=== PATIENT | male | born 1940 | race Caucasian/White ===

== ENCOUNTER 2019-08-03 06:46 | Day surgery (SDC) ==
--- NOTE | 2019-07-29 10:14 | EKG Report ---
Test Performed on : 07/29/2019 09:54:45 AM Test Reason : pat Blood Pressure : / mmHG Vent. Rate : 062 BPM Atrial Rate : 062 BPM P-R Int : 216 ms QRS Dur : 090 ms QT Int : 412 ms P-R-T Axes : 052 043 057 degrees QTc Int : 418 ms Sinus rhythm. with 1st degree AV block. Septal infarct , age undetermined Abnormal ECG No previous ECGs available Confirmed by Peg DYE, Bob Campos ([id number]) on 07/30/2019 7:42:48 PM
[2019-07-29 11:03] LABS: AGAP 10; BUN 16 mg/dL (8-22); CALCIUM 9.7 mg/dL (8.8-10.2); CHLORIDE 106 mmol/L (98-107); COSMO 284; CREATININE 0.8 mg/dL (0.7-1.2); ESTIMATED GFR > 60; GLUCOSE 85 mg/dL (70-104); POTASSIUM 4.3 mmol/L (3.5-5.1); SODIUM 142 mmol/L (136-145); TCO2 26 mmol/L (25-35)
[2019-07-29 11:05] LABS: HEMATOCRIT 35.5 % (42.0-52.0); HEMOGLOBIN 11.4 g/dL (14.0-18.0); MCH 33.4 PG (27-31); MCHC 32.1 g/dL (33-37); MCV 104.1 FL (81-99); MPV 9.9 FL (7.4-10.4); RBC 3.41 XMIL (4.7-6.1); RDW 13.6 % (11.5-14.5); WBC 1.4 X1000 (4.8-10.8)
[2019-08-03] MEDS ORDERED: LR 1,000 ML ONE ×2 (07:10→12:40)
[2019-08-03] MEDS ORDERED: KEFZOL 1 GM/D5W 2 GM/100 ML IVPB ONE (07:10)
[2019-08-03] MEDS ORDERED: QUELICIN (DOSE) ONE (07:34)
[2019-08-03] MEDS ORDERED: DIPRIVAN 1% ONE (07:34)
[2019-08-03] MEDS ORDERED: FENTANYL ONE (07:35)
[2019-08-03] MEDS ORDERED: ZOFRAN ONE (09:48)
[2019-08-03] MEDS ORDERED: DECADRON ONE (09:48)
[2019-08-03] MEDS ORDERED: ROBINUL ONE (09:48)
[2019-08-03] MEDS ORDERED: STERILE WATER INJ. ONE (09:48)
[2019-08-03] MEDS ORDERED: XYLOCAINE-MPF 2% ONE (09:48)
[2019-08-03] MEDS ORDERED: NORCURON ONE (09:48)
[2019-08-03] MEDS ORDERED: NEO-SYNEPHRINE ONE (09:48)
[2019-08-03] MEDS ORDERED: NEOSTIGMINE ONE (09:49)
[2019-08-03] MEDS ORDERED: PITRESSIN ONE ×2 (09:54→11:26)
[2019-08-03] MEDS ORDERED: B & O 16A SUPP ONE (12:02)
--- NOTE | 2019-08-03 12:28 | OPERATIVE NOTE ---
PROCEDURE DATE: 08/03/2019 SURGEON: Giovanni Gupta MD PREOPERATIVE DIAGNOSIS: Large bladder stone with obstructive and irritative voiding symptoms. POSTOPERATIVE DIAGNOSIS: Large bladder stone with obstructive and irritative voiding symptoms. PROCEDURE PERFORMED: 1. Cystolitholapaxy using the laser. 2. Transurethral resection of the prostate. ANESTHESIA: General endotracheal. FINDINGS: Cystoscopic exam: Urethra-greater than 25-Singaporean without stricture. Prostate - coapting lateral lobes, elevated bladder neck with length approximately 4 cm. Bladder-A large stone greater than 3.5 cm in length and 3 cm in width. It was very hard. The bladder had grade 3 trabeculations and small diverticula. No papillary lesions were noted. INDICATIONS FOR PROCEDURE: This 79-year-old male has a history of intermittent hematuria and severe obstructive and irritative voiding symptoms. Evaluation revealed a very large bladder stone, and an enlarged prostate. DESCRIPTION OF PROCEDURE: After informed consent was obtained from the patient, and him receiving IV antibiotics, he was taken to the main OR cystoscopy room, and placed in supine position. General endotracheal anesthesia was achieved. He was then placed in the low lithotomy position, and prepped and draped in the usual sterile fashion for cystoscopic exam. A 23-Singaporean sheath cystoscope was passed through the patient's urethra, prostate, and bladder with findings noted above. The 1000 micron laser fiber was placed. The laser was set at 8 hertz and 8 monroe, and the stone was well fragmented. A total of 22,015 joules was used to fragment the stone. The stone fragments were irrigated from the bladder. At completion, both ureteral orifices were intact. The bladder was left distended. The cystoscope was removed. A 25-Singaporean continuous flow resectoscope sheath was placed. The thick gyrus loop electrode was placed. Both ureteral orifices were visualized. The verumontanum was visualized. The resection was started at the 06:00 position, going to the level of bladder neck, level of the verumontanum, proceeding in a clockwise direction to the 10:00 position. The resection was then started back at the 6:00 position, going to the level of bladder neck, level of the verumontanum, proceeding in a counterclockwise direction to the 2:00 position. Tissue from the anterior prostatic urethra was removed between the 2:00 and 10:00 position from the level of bladder neck, level of the verumontanum. Hemostasis was achieved with the electrocautery. The chips were removed from the bladder with the [employer] evacuators. At completion, the channel was wide open. No chips were in the bladder. No bleeding areas were seen. Both ureteral orifices and verumontanum were intact. The bladder was left distended. The resectoscope sheath was removed, and a 22-Singaporean [address] Rothman catheter was passed per the patient's urethra, prostate, and bladder without difficulty. 30 mL of sterile water were placed in the Rothman's balloon. Rothman was placed to gravity drain. The efflux was light pink. Continuous bladder irrigation was started, and the efflux cleared. He tolerated the procedure well. Estimated blood loss 50 mL. He was taken to the recovery room in good condition. cc: Giovanni Gupta MD
[2019-08-03] MEDS ORDERED: LABETALOL IV PRN (13:30)
[2019-08-03] MEDS ORDERED: B & O 15A SUPP PR PRN (13:30)
[2019-08-03] MEDS ORDERED: PHENERGAN IV PRN (13:30)
[2019-08-03] MEDS ORDERED: DITROPAN PO PRN (13:30)
[2019-08-03] MEDS ORDERED: SODIUM CHLORIDE 0.9% INJ PRN (13:30)
[2019-08-03] MEDS ORDERED: NORCO-10 PO PRN (13:30)
[2019-08-03] MEDS ORDERED: NORCO-7.5 PO PRN (13:30)
[2019-08-03] MEDS ORDERED: NORCO-5 PO PRN (13:30)
[2019-08-03] MEDS: KEFZOL 1 GM/D5W 1 GM/50 ML IVPB IV SCH (17:50)
[2019-08-03] MEDS: LR 1,000 ML IV SCH (17:51)
[2019-08-03] MEDS: PEPCID PO SCH (20:14)
[2019-08-03] MEDS: COLACE PO SCH (20:14)
[2019-08-03] MEDS: PERIDEX MT SCH (20:14)
[2019-08-03] MEDS: VFEND PO SCH (20:15)
[2019-08-03] MEDS ORDERED: FLOMAX PO SCH (21:00)
[2019-08-04] MEDS: KEFZOL 1 GM/D5W 1 GM/50 ML IVPB IV SCH (01:05)
[2019-08-04] MEDS: LR 1,000 ML IV SCH (01:05)
[2019-08-04 07:00] LABS: HEMATOCRIT 31.5 % (42.0-52.0); MCH 33.3 PG (27-31); MCHC 31.7 g/dL (33-37); MPV 9.8 FL (7.4-10.4); RDW 13.7 % (11.5-14.5); WBC 2.49 X1000 (4.8-10.8)
[2019-08-04 07:50] LABS: AGAP 8; BUN 10 mg/dL (8-22); CALCIUM 8.3 mg/dL (8.8-10.2); CHLORIDE 107 mmol/L (98-107); COSMO 280; CREATININE 0.8 mg/dL (0.7-1.2); ESTIMATED GFR > 60; GLUCOSE 122 mg/dL (70-104); POTASSIUM 4.4 mmol/L (3.5-5.1); SODIUM 140 mmol/L (136-145); TCO2 25 mmol/L (25-35)
[2019-08-04 07:53] VITALS: BP 117/70
[2019-08-04] MEDS: VFEND PO SCH (08:13)
[2019-08-04] MEDS: COLACE PO SCH (08:13)
[2019-08-04] MEDS: PERIDEX MT SCH (08:14)
[2019-08-04] MEDS: PEPCID PO SCH (08:14)
[2019-08-04] MEDS ORDERED: VICON-C PO SCH (09:00)
[2019-08-04] MEDS ORDERED: VITAMIN B-12 PO SCH (09:00)
[2019-08-04] MEDS ORDERED: PRINIVIL PO SCH (09:00)
[2019-08-04] MEDS ORDERED: CENTRUM SILVER PO SCH (09:00)
[2019-08-04] MEDS ORDERED: LIPITOR PO SCH (09:00)
== END 2019-08-04 12:56 | disposition home or self-care (01) ==
LOC: PAT 06:46 → 4N 06:46 → PAT 08-04 12:56
PROVIDERS: ATTEND Urology
PROC: UR.TURP (2019-08-03 09:23)

== ENCOUNTER 2020-01-02 12:42 | Inpatient (IN) ==
--- NOTE | 2020-01-02 14:26 | Diag Imaging Result Doc PS360 ---
EXAM: CHEST-2 VIEWS INDICATION: pna TECHNIQUE: 2 views COMPARISON: 11/24/2018 FINDINGS: A left chest port is in place with the tip projecting over the lower SVC in the expected position. There is dense airspace consolidation in the right lower lobe indicating pneumonia. The left lung is clear. There is no discrete pleural fluid collection or pneumothorax. The cardiomediastinal silhouette and central vasculature are grossly unremarkable. IMPRESSION: Right lower lobe pneumonia. Electronically signed by Tommie Allen 01/02/2020 2:24 PM
[2020-01-02 15:06] LABS: BASO# 0.01 X1000 (0.0-0.2); BASO% 0.4 % (0.0-0.8); EOS# 0.02 X1000 (0.0-0.7); EOS% 0.8 % (0.0-10.0); HEMATOCRIT 33.9 % (42.0-52.0); HEMOGLOBIN 11.3 g/dL (14.0-18.0); LYMPH# 0.66 X1000 (1.2-3.4); MCH 32.4 PG (27-31); MCHC 33.3 g/dL (33-37); MCV 97.1 FL (81-99); MONO# 0.12 X1000 (0.11-0.59); MONO% 4.7 % (1.7-9.3); MPV 9.2 FL (7.4-10.4); NEUT# 1.73 X1000 (1.4-6.5); NEUT% 68.1 % (42.2-75.2); PLT 268 X1000 (130-400); RBC 3.49 XMIL (4.7-6.1); RDW 13.3 % (11.5-14.5); WBC 2.54 X1000 (4.8-10.8)
[2020-01-02 15:18] LABS: INR 1.32; PROTIME 16.6 Seconds (11.0-16.0)
[2020-01-02 15:19] LABS: PTT 38.5 Seconds (22.3-41.8)
[2020-01-02 15:29] LABS: AGAP 13; ALBUMIN 3.4 g/dL (3.5-5.0); ALKALINE PHOSPHATASE 244 U/L (32-122); BUN 11 mg/dL (8-22); CALCIUM 9.8 mg/dL (8.8-10.2); CHLORIDE 104 mmol/L (98-107); COSMO 278; CREATININE 0.7 mg/dL (0.7-1.2); ESTIMATED GFR > 60; GLUCOSE 112 mg/dL (70-104); GOT 69 U/L (10-34); GPT 137 U/L (10-44); POTASSIUM 3.6 mmol/L (3.5-5.1); SODIUM 139 mmol/L (136-145); TCO2 22 mmol/L (25-35); TOTAL BILIRUBIN 0.53 mg/dL (0.20-1.00); TOTAL PROTEIN 6.9 g/dL (6.3-8.3)
--- NOTE | 2020-01-02 15:45 | PROVIDER DOCUMENTATION ---
HPI-General Adult - General Chief Complaint: Male Stated Complaint: BLOOD IN URINE,NO FILLING IN LEGS Time Seen by Provider: 01/02/20 14:03 Source: patient Allergies/Adverse Reactions: Patient Allergies Allergy/AdvReac Type Severity Reaction Status Date / Time No Known Allergies Allergy Verified 06/05/17 10:43 Home Medications: Home Medication List Medication Instructions Recorded Confirmed Last Taken Type Atorvastatin Calcium [Lipitor] 40 mg PO DAILY 06/05/17 01/02/20 08/02/19 08:00 History LISINOpril [Prinivil] 10 mg PO DAILY 06/05/17 01/02/20 08/02/19 08:00 History Warfarin Sodium 1 mg PO DAILY 04/28/19 01/02/20 07/30/19 08:00 History Tamsulosin [Flomax] 0.4 mg PO QHS 07/29/19 01/02/20 08/02/19 21:00 History Benzonatate 1 tab PO TID PRN 01/02/20 01/02/20 Unknown History Clindamycin [Cleocin] 300 mg PO TID 01/02/20 01/02/20 Unknown History Hydrocortisone [Proctozone-Hc] 30 gm TOPICAL DIRECTED 01/02/20 01/02/20 Unknown History Levofloxacin 500 mg PO DAILY 01/02/20 01/02/20 Unknown History - History of Present Illness -Gen Adult Nature of Presenting Problems: Patient comes in multiple complaints that include blood in urine, black stool, prostate infection, recent flu and pneumonia. is non toxic in appearance and his main complaint is blood in urine will order testing to try to cover all complaints. Review of Systems - Adult - REVIEW OF SYSTEMS - ADULT Constitutional: reports: see HPI, chills, fever. denies: fatique, night sweats, weight gain, weight loss Eyes: reports: no symptoms reported. denies: discharge, dry eyes, decreased vision, double vision, eye pain, redness Ears, Nose, Mouth & Throat: reports: no symptoms reported. denies: ear discharge, hearing loss, tinnitus, sinus problem, nose pain, mouth swelling, throat pain, throat swelling Cardiovascular: reports: no symptoms reported. denies: chest pain, edema, irregular heart rate, palpitations, poor circulation, PND, syncope Respiratory: reports: see HPI, cough, dyspnea on exertion, shortness of breath Gastrointestinal: reports: see HPI, rectal bleeding. denies: abdominal pain, he matemesis, constipation, diarrhea, frequent heartburn, poor appetite Genitourinary: reports: see HPI, hematuria. denies: dysuria, frequency, flank pain, frequent UTI's, hesitency, incontinence, urinary retention Musculoskeletal: reports: see HPI, muscle aches. denies: bone pain, back pain, frequent leg cramps, joint swelling, muscle weakness, neck pain Integumentary: reports: no symptoms reported. denies: hives, hair loss, itching, mole changes, nail changes, skin sores/ulcer, skin thickening Neurological: reports: no symptoms reported. denies: ataxia, headache/migraines, loss of balance, numbness, seizure, slurred speech, syncope, tremors Psychiatric: reports: no symptoms reported. denies: anxiety, alcohol/drug dependence, depression, emotional problems, panic attacks, suicidal thoughts Endocrine: reports: no symptoms reported. denies: change in skin pigment, excessive sweating, goiter, cold intolerance, increased hunger, increased thirst, polyuria Hematologic/Lymphatic: reports: no symptoms reported. denies: blood clots, easy bruising, low blood count, prolonged bleeding, transfusions Allergic/Immunologic: reports: no symptoms reported. denies: allergic reactions, asthma, eczema, hives, positive PPD, urticaria All Other Systems: Reviewed and Negative Past History - Adult - PAST MEDICAL HISTORY-ADULT Review of Records: reports: Old Records Reviewed, Nursing Assessment Review, Medications Reviewed, Social history reviewed & non-contributory. Major Childhood Illnesses: reports: denies history Cardiovascular: reports: HTN, hyperlipidemia Respiratory: reports: pneumonia Gastrointestinal: reports: denies history Obstetrical/Gynecological: reports: denies history Genitourinary: reports: denies history Musculoskeletal: reports: denies history Neurological: reports: denies history Endocrine/Immune: reports: cancer, Diabetes Other Conditions: reports: denies history - PRIOR SURGERIES/PROCEDURES Surgical/Procedure History: reports: reviewed, not pertinent - IMMUNIZATION STATUS Childhood Immunizations: See Nurse Assessment Flu Vaccine: See Nurse Assessment - FAMILY HISTORY Family History: reviewed, not pertinent - SOCIAL HISTORY Smoking: denies Substance Use: none/never Alcohol Use Frequency: never Living Situation: family Physical Exam-General - PHYSICAL EXAM-ADULT Initial Vital Signs Reviewed: Yes - CONSTITUTIONAL General Appearance: appears well, alert, no apparent distress - EYES Eyes: PERRL/EOMI, pink conjunctivae - HEAD, EARS, NOSE, MOUTH & THROAT HENMT: normocephalic/atraumatic, moist mucous membranes, normal ENT inspection - NECK Neck: non-tender, full range of motion - RESPIRATORY Respiratory: chest non-tender, decreased rate, crepitus - CARDIOVASCULAR Cardiovascular: normal peripheral pulses, regular rate, rhythm, no edema - GASTROINTESTINAL (ABDOMEN) Abdominal Exam: normal bowel sounds, non tender, soft - MUSCULOSKELETAL Back Exam: normal inspection, no CVA tenderness Extremity: normal range of motion, non-tender Progress - PLAN OF CARE/RESULTS Progress/Plan/Lab Results: Vital Signs - 8 hr 01/02/20 12:55 Temperature 98.3 F Pulse Rate 71 Respiratory Rate 17 Blood Pressure 113/73 O2 Sat by Pulse Oximetry 97 Laboratory Results - last 24 hr 01/02/20 01/02/20 01/02/20 14:49 14:49 14:49 WBC 2.54 L RBC 3.49 L Hgb 11.3 L Hct 33.9 L MCV 97.1 MCH 32.4 H MCHC 33.3 RDW Std Deviation 13.3 Plt Count 268 MPV 9.2 Immature Gran % (Auto) 0.0 Neut % (Auto) 68.1 Lymph % (Auto) 26.0 [place] % (Auto) 4.7 Eos % (Auto) 0.8 Baso % (Auto) 0.4 Immature Gran # (Auto) 0.00 Neut # (Auto) 1.73 Lymph # (Auto) 0.66 L [place] # (Auto) 0.12 Eos # (Auto) 0.02 Baso # (Auto) 0.01 PT 16.6 H INR 1.32 PTT (Actin FS) 38.5 Sodium 139 Potassium 3.6 Chloride 104 Carbon Dioxide 22 L Anion Gap 13 BUN 11 Creatinine 0.7 Estimated GFR/1.73 m2 > 60 BUN/Creatinine Ratio 16 Glucose 112 H Calculated Osmolality 278 Calcium 9.8 Total Bilirubin 0.53 AST 69 H ALT 137 H Alkaline Phosphatase 244 H Total Protein 6.9 Albumin 3.4 L Globulin 3.5 Albumin/Globulin Ratio 1.0 Orders Category Date Time Status cxr [CHEST-2 VIEWS] [RAD] Stat Exams 01/02/20 14:03 Completed BLOOD CULTURE [BLDCUL] Stat Lab 01/02/20 15:24 Uncollected CBC WITH DIFF [HEME] Stat Lab 01/02/20 14:49 Completed CMP [COMPREHENSIVE METABOLIC PANEL] [CHEM] Stat Lab 01/02/20 14:49 Completed PROTIME WITH INR [COAG] Stat Lab 01/02/20 14:49 Completed PTT [COAG] Stat Lab 01/02/20 14:49 Completed UA NIMS W/REFLEX CULT [URINALYSIS] Stat Lab 01/02/20 14:02 Uncollected Result Diagrams: 01/02/20 14:49 01/02/20 14:49 - XRAY 1 XRAY Study: Chest Impression: Abnormal, See EMR Report XRAY Interpretation: Right lower lobe pneumonia. - CONSULTS/PCP/HOSPITALIST Notification #1 *Consult/PCP/Hospitalist*: dr chen Time Discussed: 16:06 Consult Disposition: Will see in ED, Admit Departure - Departure Date of Disposition Decision: 01/02/20 Time of Disposition Decision: 15:47 DIAGNOSIS: PNA (pneumonia) Qualifiers: Pneumonia type: due to unspecified organism Laterality: right Lung location: lower lobe of lung Qualified Code(s): J18.1 - Lobar pneumonia, unspecified organism Disposition: ADMITTED INPATIENT 09 Certified Medical Emergency: Emergent Condition: Good Additional Instructions: ED Follow Up Instructions: You have been treated by a care provider in the Emergency Department. These instructions are being provided to you so you can have an understanding of how to care for yourself upon discharge. Upon discharge from the Emergency Department, you are responsible for making arrangements for follow-up care by a physician of your choice. Take all prescribed medications as directed. Return to the Emergency Department immediately for any new or worsening symptoms. You may call the Physician Referral phone number at [phone] to obtain a list of Physicians who are taking new patients. Referrals and Follow-Ups: Quique Miller MD [Primary Care Provider] - - Critical Care Note This patient required my direct & personal management of CC.: No Attestation - Physician/ NIMA Attestation Patient care was provided by Advanced Practice Provider:: Yes Advanced Practice Provider:: Lou Key Advanced Practice Provider documentation review:: The Mid-level provider documentation, treatment plan and medical decision making was reviewed by the physician who agrees with all treatment and medical decision making by the MLP. The physician spent face to face time with patient:: No Advanced Practice Provider documentation review:: Supervising physician onsite and consulted in the evaluation and care of this patient. The physician did not have a face to face encounter with the patient.
[2020-01-02] MEDS ORDERED: DOXYCYCLINE 100 MG in NS 250 ML IV ONE (15:49)
[2020-01-02] MEDS ORDERED: ROCEPHIN 1 GM in NS 50 ML IV ONE (15:49)
[2020-01-02] MEDS ORDERED: NORCO-5 PO ONE (15:51)
[2020-01-02 16:45] LABS: URINE SOURCE CLEAN CATCH
[2020-01-02 16:53] LABS: BILIRUBIN URINE NEGATIVE (NEGATIVE); BLOOD URINE MODERATE (NEGATIVE); COLOR YELLOW; GLUCOSE URINE NEGATIVE (NEGATIVE); KETONE URINE NEGATIVE (NEGATIVE); LEUKOCYTES URINE NEGATIVE (NEGATIVE); NITRITE URINE NEGATIVE (NEGATIVE); PH URINE 6.5; PROTEIN URINE TRACE mg/dL (NEGATIVE); SP GRAVITY URINE 1.023; TURBIDITY URINE HAZY (CLEAR); UROBILINOGEN URINE NORMAL (NORMAL)
[2020-01-02 16:58] LABS: UR EPITHELIAL CELLS <10 /HPF (<10); URINE BACTERIA NEGATIVE /HPF; URINE RBC 20-40 /HPF (<10); URINE WBC <10 /HPF (<10)
[2020-01-02 17:03] LABS: URINE CRYSTALS CA OXALATE PRESENT
[2020-01-02] MEDS ORDERED: ZOFRAN IV PRN (17:31)
[2020-01-02] MEDS ORDERED: TYLENOL PO PRN (17:31)
[2020-01-02] MEDS ORDERED: TESSALON PO PRN (17:31)
[2020-01-02] MEDS ORDERED: ANUSOL-HC CREAM PR PRN (17:31)
--- NOTE | 2020-01-02 17:49 | HISTORY AND PHYSICAL ---
PRIMARY CARE PHYSICIAN: Dr. Miller. CHIEF COMPLAINT: Was recently diagnosed with a prostate infection and pneumonia, was unable to take the medication that was prescribed. Stated that he did not like the way it made him feel so he stopped it. He had multiple complaints overall but was found to have his right lower lobe pneumonia which he knew he had but stopped the antibiotics. No white count currently. 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 PAST MEDICAL HISTORY: Of leukemia, BPH, hypertension, hyperlipidemia. PAST SURGICAL HISTORY: Of a hernia and port placement. FAMILY HISTORY: Heart disease and diabetes type 2. SOCIAL HISTORY: Currently lives with his . Denies any tobacco, alcohol or illicit drug use. ALLERGIES: He has no known drug allergies. HOME MEDICATIONS: He takes atorvastatin 40 mg p.o. daily, benzonatate 200 mg p.o. t.i.d. p.r.n., clindamycin 300 mg p.o. t.i.d. will be held, hydrocortisone per rectum as directed, Levaquin 500 mg p.o. daily will be held, lisinopril 10 mg p.o. daily, tamsulosin 0.4 mg p.o. at bedtime and Coumadin 1 mg p.o. daily. LABORATORY DATA: Showed a white blood cell count of 2.54, hemoglobin 11.3, hematocrit 33.9, platelets 268,000. PT and INR of 16.6 and 1.32. Sodium of 139, potassium 3.6, chloride 104, CO2 22, BUN of 11, creatinine 0.7, glucose 112. Chest x-ray that showed a right lower lobe pneumonia. REVIEW OF SYSTEMS: He denied any fever, chills, blurred vision, dizziness, chest pain. He has had a nonproductive cough, some mild shortness of breath. Denied any abdominal pain. States that he has had some blood in his urine, and denied any constipation, diarrhea, burning or hurting with urination. PHYSICAL EXAMINATION: On arrival he had a temperature of 98.3 degrees, pulse 71, respirations 17, blood pressure 113/73, saturating 97% on room air. GENERAL: This is a 79-year-old male lying in the bed, answers questions appropriately. HEENT: Normocephalic, atraumatic. Normal ENT inspection. Oropharynx and nares are clear. EYES: Pupils are equal, round, reactive to light and accommodation. Extraocular movements are intact. NECK: Normal inspection, normal range of motion. LUNGS: Clear to upper bases, minimally decreased to the lower bases. Equal lung expansion and chest wall movement noted. HEART: Regular rate and rhythm. No murmurs, rubs, or gallops. ABDOMEN: Soft, nontender, nondistended. Bowel sounds are present x4 quadrants. MUSCULOSKELETAL: He has 5/5 strength x4 extremities. NEUROLOGICAL: The cranial nerves 2-12 appear grossly intact. ASSESSMENT: 1. Right lower lobe pneumonia with failed outpatient treatment. 2. Recently diagnosed with prostatitis. 3. Leukemia. 4. Hypertension. 5. Hyperlipidemia. PLAN: He will be admitted to the medical unit, placed on telemetry. We will check a PT and INR daily. Healthy heart diet. Continue his home medications. Place on doxycycline 100 mg IV q.12, Rocephin 1 gram IV q.24 received both antibiotic doses 1st doses in the emergency room. We will recheck a CBC, BMP in the a.m. and further orders after seen by attending. Dictated by JEM Demarco for Jabari Sullivan MD cc: JEM Demarco MD
--- NOTE | 2020-01-02 19:30 | HISTORY AND PHYSICAL ---
ADDENDUM: The patient seen and examined by me face to face. All the laboratory, vital signs, and images were reviewed. The patient presented to the emergency department with multiple complaints. As per the patient, he woke up today and he was urinating blood, but after that he had 2 normal urines. Also, he has been complaining of dark stool, but today he has been fine. He recently started treatment for pneumonia and apparently prostatitis, but he did not complete the treatment with levofloxacin. He follows with Dr. Yang as an outpatient. 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 Yang as well. X-ray showed right lower lobe pneumonia and laboratory showed leukopenia with elevated LFTs. His previous LFTs were completely normal one year ago. So I have requested an abdominal ultrasound, hepatitis panel, and also Gastroenterology evaluation. He has been placed on antibiotics. I will stop the statins because of the hepatotoxicity. I will monitor closely. I agree with the rest of the nurse practitioner's assessment and plan. cc: Jabari Sullivan MD
--- NOTE | 2020-01-02 20:20 | Diag Imaging Result Doc PS360 ---
EXAM: US ABDOMEN-COMPLETE INDICATION: Elevated LFTs COMPARISON: None. FINDINGS: The gallbladder appears normal with no stones, wall thickening, or pericholecystic fluid. The common bile duct is normal in diameter. Sonographic Sommers's sign was reported to be negative. The liver is grossly normal in echotexture with no discrete hepatic mass appreciated. Portal venous flow is hepatopetal. The visualized pancreas is unremarkable. The aorta and IVC are grossly unremarkable. The spleen is unremarkable. The kidneys are grossly unremarkable. IMPRESSION: Essentially unremarkable abdominal ultrasound. Electronically signed by Tommie Allen 01/02/2020 8:18 PM
[2020-01-02] MEDS: FLOMAX PO SCH (21:08)
[2020-01-03] MEDS: DOXYCYCLINE 100 MG in NS 250 ML IV SCH ×2 (05:18→15:09)
[2020-01-03 07:03] LABS: BASO# 0.01 X1000 (0.0-0.2); BASO% 0.4 % (0.0-0.8); EOS# 0.07 X1000 (0.0-0.7); HEMATOCRIT 31.2 % (42.0-52.0); LYMPH# 0.83 X1000 (1.2-3.4); LYMPH% 35.8 % (20.5-51.1); MCH 31.8 PG (27-31); MCHC 32.1 g/dL (33-37); MCV 99.4 FL (81-99); MONO# 0.08 X1000 (0.11-0.59); MONO% 3.4 % (1.7-9.3); MPV 9.4 FL (7.4-10.4); NEUT# 1.33 X1000 (1.4-6.5); NEUT% 57.4 % (42.2-75.2); PLT 250 X1000 (130-400); RBC 3.14 XMIL (4.7-6.1); RDW 13.4 % (11.5-14.5); WBC 2.32 X1000 (4.8-10.8)
[2020-01-03 07:06] LABS: INR 1.31; PROTIME 16.5 Seconds (11.0-16.0)
[2020-01-03 07:31] LABS: AGAP 8; BUN 13 mg/dL (8-22); CHLORIDE 108 mmol/L (98-107); COSMO 281; CREATININE 0.7 mg/dL (0.7-1.2); ESTIMATED GFR > 60; GLUCOSE 93 mg/dL (70-104); POTASSIUM 4.9 mmol/L (3.5-5.1); SODIUM 141 mmol/L (136-145); TCO2 25 mmol/L (25-35)
[2020-01-03 09:25] LABS: ALB/GLOB RATIO 1.4; ALBUMIN 3.2 g/dL (3.5-5.0); DIRECT BILIRUBIN 0.1 mg/dL (0.00-0.20); TOTAL BILIRUBIN 0.43 mg/dL (0.20-1.00); TOTAL PROTEIN 5.5 g/dL (6.3-8.3)
[2020-01-03] MEDS: PRINIVIL PO SCH (09:31)
[2020-01-03] MEDS: COUMADIN PO SCH (09:32)
[2020-01-03] MEDS ORDERED: NS 50 ML ONE (09:55)
--- NOTE | 2020-01-03 13:16 | PROGRESS NOTE ---
DATE: 01/03/2020 SUBJECTIVE: As per the patient, he is feeling a little bit better. He is still complaining of cough. Pending Gastroenterology evaluation. The ultrasound of the abdomen basically is normal. I will get a new chest x-ray in the morning as well. OBJECTIVE: Vital Signs: Temperature 98.4 degrees, pulse 51, respiratory rate 20, blood pressure 136/67, oxygen saturation 100% on room air. HEENT: Head normocephalic. No trauma. PERRLA. Neck: Supple. No JVD. No masses. Central trachea. Chest: Decreased breath sounds at the right base with rhonchi. Abdomen: Soft, nontender, nondistended. No hepatosplenomegaly. Extremities: No edema, no clubbing, no cyanosis. Neurological: The patient is awake, alert. He is oriented x3. No focal deficits. LABORATORY DATA: WBC 2.3, hemoglobin 10.0, hematocrit 31.2, platelets 250,000. Sodium 141, potassium 4.9, chloride 108, bicarbonate 25, BUN 13, creatinine 0.7, glucose 93, calcium 9. AST 60, ALT 103, alkaline phosphatase 196, albumin 3.2. ASSESSMENT AND PLAN: 1. Right lower lobe pneumonia. As per the patient, he took some treatment with levofloxacin, but it looks like he stopped it because he read that it has so many side effects. I will continue with the same management. He seems to be feeling better. He is still coughing. Will monitor. 2. Leukemia. This has been managed by Dr. Yang, and he has placed this patient on warfarin 1 mg. 3. Hypertension, stable. 4. Hyperlipidemia. I will stop the statins due to the elevation of the liver function tests. This can be restarted in the future. 5. Elevated liver function tests. I am not quite sure about the cause. Abdominal ultrasound is unremarkable. I asked already for a hepatitis panel that is pending, and also Gastroenterology Department to evaluate this patient. 6. Asymptomatic bradycardia. Aware. cc: Jabari Sullivan MD
[2020-01-03] MEDS ORDERED: ROCEPHIN 1 GM in NS 50 ML IV SCH (16:00)
--- NOTE | 2020-01-03 17:56 | GASTROENTEROLOGY CONSULTATION ---
DATE: 01/03/2020 ADMITTING PHYSICIAN: Jabari Sullivan MD REASON FOR CONSULTATION: Elevated Liver enzymes. HISTORY OF PRESENT ILLNESS: Mr. Pretty is a 79-year-old male was admitted on 01/02/2020 for workup and treatment of newly diagnosed pneumonia, prostate infection, hematuria, and recent flu infection. Per the patient, he had a fever a few days ago for which he saw his primary care doctor. He was put on antibiotics for a total of 14 days for prostate infection. He saw Dr. Yang recently and got tested was told he had flu. He was given different kind of medications at that time. Subsequently he continued to have more problems and underwent further workup and was told that he had pneumonia and was sent to the hospital for further workup. In the hospital, he had lab work done which showed evidence of mildly elevated liver enzymes. The patient denies any prior history of liver disease. Denies any prior history of hepatitis. He denies any family history of liver disease. He denies any prior history of jaundice. He denies any excess use of Tylenol or NSAIDs. PAST MEDICAL HISTORY: 1. Leukemia status post 5 months [address] Dr[address] Yang. Currently under remission being followed Dr. Yang. 2. BPH. 3. Hypertension. 4. Hyperlipidemia. 5. Recent flu infection. 6. Recent prostate infection. 7. Recent hematuria, which was discovered before admission and has improved. 8. Newly diagnosed pneumonia, treated. 9. Hypertension. 10. Hyperlipidemia. PAST SURGERY HISTORY: He had a colonoscopy [address] Francisco. It was normal. He had a port placement. He had a hernia surgery. FAMILY HISTORY: Heart disease and type 2 diabetes. SOCIAL HISTORY: He is . He lives with his . Denies history of alcohol, tobacco, illicit drug abuse. ALLERGIES: No known drug allergies. MEDICATIONS IN THE HOME: Include atorvastatin 40 mg daily, benzonatate 200 mg p.o. t.i.d. as needed, clindamycin 3 mg p.o. t.i.d., which was withheld, hydrocortisone per rectum as directed, Levaquin 5 mg once daily for 2 weeks which has been withheld in the hospital, lisinopril 10 mg daily, tamsulosin 0.4 mg p.o. at bedtime, Coumadin 1 mg p.o. daily. This is for the Port maintenance. REVIEW OF SYSTEMS: Denies any current fevers, rigors, or chills. He does have some dry cough. He is currently being treated for pneumonia. He denies any current shortness of breath. He denies any nausea, vomiting, vomiting blood, passing blood in the stools. He denies any nausea complaints. ALLERGIES: No known drug allergies. MEDICATIONS IN THE HOSPITAL: Include Flomax, Tylenol, Tessalon, doxycycline 100 mg IV q.12 hours, hydrocortisone 2.5% cream 2 to 4 times daily, lisinopril 10 mg daily, next Zofran 4 mg IV every 4 hours as needed, ceftriaxone 1 g every day, Coumadin 1 mg every day. DIET: The patient is currently on a heart healthy diet. PHYSICAL EXAMINATION: Vital signs: Temperature of 98.2 degrees, pulse rate 51, respiratory rate 18, blood pressure 152/81, saturating 90% on room air. Body weight a 171 pounds 8 ounces. BMI 24.6 kg. General: Moderately built, lying in bed in no acute distress. HEENT: Pale with no icterus. Pupils equal, reactive to light. Abdomen: Soft, nontender. No guarding or rebound. Extremities: No cyanosis, clubbing. Neuro: Was alert, awake, oriented x3. LABS: Hemoglobin and hematocrit is 10 and 31.2. White count of 2.32, platelet count of 250,000. INR of 1.3, PTT of 16.5. Sodium 140, potassium 4.9, chloride 100, bicarb 25, anion gap of 8, BUN of 13, creatinine 0.7, glucose of 93. Calcium is 9. Total bilirubin is 0.43, direct of 0.1. AST 60, ALT 103. Alkaline phosphatase 196, total protein is 7, albumin of 3.2. Prior to that in November 2013, his alkaline phosphatase was 79, which is normal and his liver enzymes, ALT was also normal at 23 in 11/24/2018. His AST in 11/24/2018 was 24, which is normal. This is obviously new elevation of liver enzymes. Urinalysis showing trace protein, trace moderate blood 20 to 40 RBCs. Calcium oxalate crystals present. Blood culture x2 were drawn yesterday. They are currently pending. The patient had abdominal x-ray done, which showed right lower lobe pneumonia. He had abdominal ultrasound done, which showed gallbladder appears normal with no stones or wall thickening or pericholecystic fluid. The common bile duct is normal in diameter. Negative sonographic Sommers sign. Liver is normal in echotexture. Portal venous flow is hepatopetal. The spleen is unremarkable. Kidneys are grossly unremarkable. Hepatitis panel has been ordered. It is currently pending. IMPRESSION AND PLAN: 1. Right lower lobe pneumonia. In this regard, he was currently being treated with antibiotics. In the form of doxycycline and ceftriaxone. His Levaquin was withheld. 2. History of leukemia, currently in remission. Currently followed by Dr. Yang. He has a port for which he is taking Coumadin once daily. 3. Recent history of flu. Aware. 4. Elevated liver enzymes. Ultrasound is normal. We will check acute hepatitis panel, MIGEL, AMA. Very likely this is secondary to recent flu infection or prostatitis or recent sepsis from pneumonia. Drug-induced liver injury is also a possibility as the patient has been exposed to recent antibiotics no form of Levaquin and anti-flu medication and is currently being treated with ceftriaxone and doxycycline which can all cause elevated liver enzymes. Other medications which can cause liver enzymes includes antiemetics like Zofran. 5. His liver enzymes are trending down. We will try to avoid hepatotoxic drugs. We will follow up on the hepatitis panel. 6. Hypertension. Currently monitored by primary team. 7. Hyperlipidemia. At home, he was on atorvastatin. This has been on hold as it can also cause elevated liver enzymes. 8. Bradycardia. This is being followed by primary team. 9. We will follow along. The above plans discussed with the patient and the nurse and all questions answered. Please call with any further questions. cc: MD Jabari Wu MD Dr. Gillespi MTDD
[2020-01-03] MEDS: FLOMAX PO SCH ×2 (19:45→19:59)
[2020-01-04] MEDS: DOXYCYCLINE 100 MG in NS 250 ML IV SCH (04:47)
--- NOTE | 2020-01-04 06:47 | Diag Imaging Result Doc PS360 ---
CHEST-PORTABLE - 01/04/2020 INDICATION: dyspnea COMPARISON: 01/02/2020 FINDINGS: Stable advanced COPD. Stable left chest port in good position. There is been some decrease in density of the infiltrate at the right lung base, in the right lower lobe. The left lung appears clear. Heart size remains borderline enlarged. No pleural effusion. IMPRESSION: Decrease in density of the right lower lobe infiltrate/pneumonia. Electronically signed by Sang Mireles 01/04/2020 6:44 AM
[2020-01-04 07:49] LABS: BASO# 0.01 X1000 (0.0-0.2); BASO% 0.4 % (0.0-0.8); EOS# 0.04 X1000 (0.0-0.7); EOS% 1.8 % (0.0-10.0); HEMATOCRIT 30.9 % (42.0-52.0); LYMPH# 0.58 X1000 (1.2-3.4); MCH 32.2 PG (27-31); MCHC 32.4 g/dL (33-37); MCV 99.4 FL (81-99); MONO# 0.11 X1000 (0.11-0.59); MONO% 4.9 % (1.7-9.3); MPV 9.5 FL (7.4-10.4); NEUT# 1.49 X1000 (1.4-6.5); NEUT% 66.9 % (42.2-75.2); PLT 239 X1000 (130-400); RBC 3.11 XMIL (4.7-6.1); RDW 13.2 % (11.5-14.5); WBC 2.23 X1000 (4.8-10.8)
[2020-01-04 07:58] LABS: INR 1.37; PROTIME 17.1 Seconds (11.0-16.0)
[2020-01-04 08:21] LABS: AGAP 8; ALB/GLOB RATIO 0.9; ALBUMIN 2.7 g/dL (3.5-5.0); ALKALINE PHOSPHATASE 193 U/L (32-122); BUN 12 mg/dL (8-22); CALCIUM 8.7 mg/dL (8.8-10.2); CHLORIDE 108 mmol/L (98-107); COSMO 281; CREATININE 0.7 mg/dL (0.7-1.2); ESTIMATED GFR > 60; GLUCOSE 99 mg/dL (70-104); GOT 36 U/L (10-34); GPT 76 U/L (10-44); POTASSIUM 4.8 mmol/L (3.5-5.1); SODIUM 141 mmol/L (136-145); TCO2 25 mmol/L (25-35); TOTAL BILIRUBIN 0.46 mg/dL (0.20-1.00); TOTAL PROTEIN 5.6 g/dL (6.3-8.3)
[2020-01-04] MEDS: COUMADIN PO SCH (09:42)
[2020-01-04] MEDS: PRINIVIL PO SCH (09:42)
--- NOTE | 2020-01-04 11:56 | GASTROENTEROLOGY PROGRESS NOTE ---
DATE: 01/04/2020 SUBJECTIVE: Mr. Pretty is a 79-year-old, male, resting in bed. He has denied any nausea, vomiting, abdominal pain. The patient has denied having any bowel movements today. He did have one yesterday. He is on a heart healthy diet, and was able to tolerate his diet well. OBJECTIVE: Vital Signs: Temperature 98.7 degrees, pulse 53, respirations 18, blood pressure 135/71, oxygen saturation 95% on room air. The patient's weight is 171 pounds. BMI is 24.6 kg/m2. General: He is alert and oriented x3, and in no acute distress. HEENT: Pale conjunctivae. No icterus. PERRL. Neck: Supple. Lungs: Clear to auscultation. Cardiovascular: The patient is bradycardic. Abdomen: Soft, nontender, nondistended. Active bowel sounds heard in all 4 quadrants. Extremities: No clubbing, no cyanosis, no edema. Pedal pulses 2+ present bilaterally. Neurologic: He is alert and oriented x3. LABORATORY DATA: WBCs are 2.23, RBC is 3.11, hemoglobin is 10.0, hematocrit is 30.9, platelet count is 239,000. PT is 17.1, INR is 1.37. Sodium 141, potassium 4.8, chloride 108, carbon dioxide 25, anion gap 8, BUN 12, creatinine is 0.7, glucose 99, calcium 8.7. Total bilirubin is 0.46, AST 36, ALT 76, alkaline phosphatase is 193, albumin is 2.7. IMAGING: The patient's x-ray today showed decrease in density of right lower lobe infiltrate/pneumonia. IMPRESSION AND PLAN: Elevated liver enzymes Pneumonia Prostatitis Recent hematuria PLAN: Mr. Pretty is a 79-year-old, male with a history of leukemia. He is currently in remission, followed by Dr. Yang. The patient's liver enzymes have been trending downwards. He is currently receiving antibiotics, doxycycline and Rocephin, for his pneumonia. The patient's hepatitis profile has been pending. We have ordered an MIGEL reflex and AMA. We will continue to monitor his liver enzymes, and follow the plan of care per PCP. This plan was discussed with Dr. Page. Please call us for any further questions or concerns. Dictated by JEM Maki for Fortino Page MD cc: Fortino Page MD I have seen and examined the patient myself and I agree with the above plan of care. Please call us with any further questions. GABBIE
[2020-01-04 11:58] LABS: HEPATITIS PROFILE ACUTE SEE COMMENTS
[2020-01-04 12:34] VITALS: BP 137/68
--- NOTE | 2020-01-04 17:40 | DISCHARGE SUMMARY ---
ADMISSION DATE: 01/02/2020 DISCHARGE DATE: 01/04/2020 DISCHARGE DIAGNOSES: 1. Right lower lobe pneumonia. 2. Leukemia. 3. Hypertension. 4. Elevated liver function tests, better. 5. Hyperlipidemia. 6. Asymptomatic bradycardia. PROCEDURES PERFORMED: 1. Chest x-ray dated 01/02/2020, impression: Right lower lobe pneumonia. 2. Abdomen ultrasound dated 01/02/2020, impression: Essentially unremarkable abdominal ultrasound. 3. Chest x-ray dated 01/04/2020, impression: Decreased density of the right lower lobe infiltrate/pneumonia. CONSULT: Gastroenterology Department: Dr. Page. HOSPITAL COURSE: 79-year-old male with a past medical history of leukemia, BPH, hypertension, hyperlipidemia, presented to the emergency department with multiple complaints, including some cough and shortness of breath. Apparently he was recently diagnosed with prostate infection and pneumonia. He was unable to take the medications as prescribed, I think it was levofloxacin which he stopped. We found that this patient has right lower lobe pneumonia, also he was complaining of some hematuria but during this hospitalization, the urine was clear, and as per the patient was gross hematuria at home. We noticed that this patient is on warfarin low dose per his research laboratory specialist/oncologist, Dr. Yang, and he never had any kind of problem with that. His stools are light brown per the patient. We noticed that this patient also had elevated LFTs and that they were trending down on a daily basis. We believe that was related to his previous infection and/or medications, but with his new medications, this is getting better. We asked for multiple lab work including hepatitis panel which is negative and also we asked for MIGEL, antimitochondrial study as well. This is pending at this moment. He will go home. He is asymptomatic today. He is feeling much better. I will continue with antibiotics at home. He will follow up with Dr. Page our Gastroenterology doctor in 2 to 3 months and also he will follow up with his primary care doctor in 1 week. I told the patient to see his primary care doctor in 1 week and check again for his liver enzymes. I also stopped for now, and this has been explained in detail to the patient, the treatment with statins since he has some elevated liver function tests and this medication is hepatotoxic. He seems to understand. The patient has stable medical condition tolerating p.o., ambulating, and no complaints today. DISCHARGE PHYSICAL EXAMINATION: Vital Signs: Temperature 98.6 degrees, pulse 53, respiratory rate 18, blood pressure 137/68, oxygen saturation 97% on room air. HEENT: Head normocephalic. No trauma. PERRLA. Neck: Supple. No JVD. No masses. Central trachea. Chest: Rhonchi at the right base. Abdomen: Soft, nontender, nondistended. No hepatosplenomegaly. Extremities: No edema. No clubbing, no cyanosis. Neurological: The patient is awake, alert. He is oriented x3. No focal deficits. LABORATORY: WBC 2.2, hemoglobin 10, hematocrit 30.9, platelets 239,000. Sodium 141, potassium 4.8, chloride 108, bicarbonate 25, BUN 12, creatinine 0.7, glucose 99, calcium 8.7. AST 36, ALT 76, alkaline phosphatase 193, albumin 2.7. DISCHARGE MEDICATIONS: 1. Omnicef 300 mg p.o. b.i.d. 2. Benzonatate 1 tablet p.o. t.i.d. as needed for cough. 3. Doxycycline 100 mg p.o. b.i.d. 4. Hydrocortisone 30 g topical as directed. 5. Lisinopril 10 mg p.o. daily. 6. Tamsulosin 0.4 mg p.o. at bedtime. 7. Warfarin 1 mg p.o. daily. cc: Jabari Sullivan MD
== END 2020-01-04 13:49 | disposition home or self-care (01) | DRG 194 ==
LOC: ED 12:42 → EDIPHOLD 16:37 → 3N 20:35
PROVIDERS: ATTEND Internal Medicine